=== PATIENT | female | born 1980 | race African-American/Black ===

== ENCOUNTER 2017-04-19 08:50 | Inpatient (IN) | payer OTHER ==
[2017-04-17 12:42] VITALS: BMI 38.2
[~2017-04-19 08:50] MED LIST: BUPIVACAINE HCL/PF 0.5% (5MG/ML) 10 ML VIAL IJ ONE
[2017-04-19] MEDS ORDERED: MIDAZOLAM HCL 2 MG/2 ML SINGLE DOSE VIAL ONE (15:01)
[2017-04-19] MEDS ORDERED: PROPOFOL 20 ML ONE (15:01)
[2017-04-19] MEDS ORDERED: ROCURONIUM BROMIDE 50 MG/5 ML VIAL ONE ×2 (15:01→15:59)
[2017-04-19] MEDS ORDERED: ceFAZolin SODIUM 1 GM VIAL ONE (15:24)
[2017-04-19] MEDS ORDERED: ceFAZolin SODIUM 1 GM VIAL IVPB ONE (15:29)
[2017-04-19] MEDS ORDERED: ONDANSETRON 4 MG/2 ML VIAL ONE ×2 (15:30→17:32)
[2017-04-19] MEDS ORDERED: DEXAMETHASONE SOD PHOSPHATE 4 MG/1 ML VIAL ONE ×2 (15:30→17:32)
[2017-04-19] MEDS ORDERED: GLYCOPYRROLATE 0.2 MG/1 ML VIAL ONE (17:22)
[2017-04-19] MEDS ORDERED: BUPIVACAINE HCL/PF 0.5% (5MG/ML) 10 ML VIAL IJ ONE (17:30)
--- NOTE | 2017-04-19 17:51 | OP ---
Operative Note - Note: Operative Date: 04/19/17 Pre-Operative Diagnosis: 1. Evaluate anatomy prior to sleeve gastrectomy. 2. Rule out leak/obstruction post sleeve gastrectomy Operation: Upper endoscopy/EGD Post-Operative Diagnosis: Other (No obstruction/leak) Surgeon: Juan Holloway Anesthesia: General Specimens Removed: None Estimated Blood Loss (mls): 0 Operative Report Dictated: Yes
--- NOTE | 2017-04-19 17:53 | OP ---
Operative Note - Note: Operative Date: 04/19/17 Pre-Operative Diagnosis: Morbid Obesity. Sleep Apnea Operation: Laparoscopic Vertical Sleeve Gastrectomy. Laparoscopic Lysis of Adhesions. Diagnostic Laparoscopy Findings: Patient with stretched previous sleeve gastrectomy. Massive scar tissue between stomach and liver noted. Large amount of scar tissue noted on greater curve of stomach and dissected off. Implants: none Surgeon: Bao Lnaza Content Curator: Juan Holloway Anesthesia: General Specimens Removed: Greater curve of stomach Estimated Blood Loss (mls): 200 Operative Report Dictated: Yes
[2017-04-19] MEDS ORDERED: PROMETHAZINE HCL 25 MG/1 ML VIAL ONE (18:00)
[2017-04-19] MEDS: METOCLOPRAMIDE HCL INJECTION 10 MG/2 ML VIAL IVPUSH SCH (18:00)
[2017-04-19] MEDS: HYDROmorphone HCL CARPU-JECT 2 MG/1 ML DISP.SYRIN IVPUSH PRN ×4 (18:15→18:45)
[2017-04-19] MEDS ORDERED: METOCLOPRAMIDE HCL INJECTION 10 MG/2 ML VIAL ONE (18:21)
[2017-04-19] MEDS ORDERED: HYDROmorphone HCL CARPU-JECT 2 MG/1 ML DISP.SYRIN ONE (18:22)
[2017-04-19] MEDS: ELECTROLYTE-148 SOLN 1,000 ML IV SCH (18:50)
[2017-04-19] MEDS ORDERED: PROMETHAZINE HCL 25 MG/1 ML VIAL IVPB PRN (18:56)
[2017-04-19 19:59] LABS: HEMATOCRIT 39.3 % (32.4-45.2); HEMOGLOBIN 12.9 GM/dL (10.7-15.3); MCH 29.9 pg (25.7-33.7); MCHC 32.7 g/dl (32.0-36.0); MEAN CELL VOLUME 91.3 fl (80-96); MEAN PLT VOLUME 9.7 fl (7.5-11.1); PLATELET COUNT 126 K/MM3 (134-434); RDW 13.7 % (11.6-15.6); WHITE BLOOD COUNT 20.2 K/mm3 (4.0-10.0)
[2017-04-19 20:04] LABS: ALBUMIN 3.4 g/dl (3.4-5.0); ALK PHOS 66 U/L (45-117); ANION GAP 11 (8-16); BILIRUBIN,TOTAL 0.4 mg/dL (0.2-1.0); BLOOD UREA NITROGEN 11 mg/dL (7-18); CHLORIDE 107 mmol/L (98-107); CO2 20 mmol/L (21-32); CREATININE 0.7 mg/dL (0.55-1.02); GLUCOSE,RANDOM 131 mg/dL (74-106); SGPT/ALT 47 U/L (12-78); SODIUM 138 mmol/L (136-145); TOT PROT 7.1 g/dl (6.4-8.2)
[2017-04-19 20:26] LABS: POTASSIUM 3.7 mmol/L (3.5-5.1); SGOT/AST 68 U/L (15-37)
[2017-04-19] MEDS: SODIUM CHLORIDE 1,000 ML IV SCH ×2 (20:38→22:46)
[2017-04-19] MEDS: FAMOTIDINE 20 MG/50 ML IVPB 20 MG/50 ML MG IVPB SCH (22:45)
--- NOTE | 2017-04-19 23:14 | HP ---
DATE OF ADMISSION: 04/19/2017 CHIEF COMPLAINT: Morbid obesity. HISTORY OF PRESENT ILLNESS: The patient is a 36-year-old woman with a history of morbid obesity for many years despite multiple attempts at dietary weight loss. She received nutritional, psychological, cardiac evaluation and clearance prior to undergoing elective sleeve gastrectomy surgery. PAST MEDICAL HISTORY: Significant for sleep apnea. PAST SURGICAL HISTORY: Patient has sleeve gastrectomy 4-1/2 years ago in [place]. ALLERGIES/MEDICATION: Patient has no known allergies and takes no medications. REVIEW OF SYSTEMS: Cardiovascular: Within normal limits. Musculoskeletal: Within normal limits. Gastrointestinal: Within normal limits. Neuromuscular: Patient has bilateral knee pain. PHYSICAL EXAMINATION: General: Patient is awake and alert, morbidly obese in no acute distress. HEENT: No masses palpated. Lungs: Clear bilaterally. Heart: Regular sinus rhythm. Abdomen: Well healed trocar incision. Soft and nontender on palpation. Positive for obesity. Extremities: Within normal limits. IMPRESSION: Morbid obesity. PLAN: OR for sleeve gastrectomy surgery. Wendy [id number]
[2017-04-20] MEDS: HYDROmorphone HCL CARPU-JECT 2 MG/1 ML DISP.SYRIN IVPB PRN ×4 (00:16→21:34)
[2017-04-20] MEDS: ONDANSETRON 4 MG/2 ML VIAL IVPUSH PRN ×2 (00:16→08:22)
[2017-04-20] MEDS: METOCLOPRAMIDE HCL INJECTION 10 MG/2 ML VIAL IVPUSH SCH ×4 (02:34→21:34)
--- NOTE | 2017-04-20 07:28 | OP ---
DATE OF OPERATION: 04/19/2017 SURGEON: Corry Holloway MD PROCEDURE: Upper endoscopy/esophagogastroduodenoscopy. PREOPERATIVE DIAGNOSIS: Evaluate for a leak/obstruction and to evaluate the anatomy prior to sleeve gastrectomy and to reevaluate for obstruction/leak after sleeve gastrectomy. POSTOPERATIVE DIAGNOSIS: Dilated gastric sleeve pouch and no obstruction or leak after sleeve gastrectomy. SPECIMEN: None. ESTIMATED BLOOD LOSS: None. ANESTHESIA: GET. REASON FOR PROCEDURE: This is a 36-year-old female who is undergoing a vertical sleeve gastrectomy by Dr. Bao Lanza. In order to evaluate the anatomy preoperatively, endoscopy was requested. DESCRIPTION OF PROCEDURE: Endoscope was inserted into the patient's mouth. The entirety of the esophagus, GE junction, stomach was inspected. Stomach was noticed to be non-tortuous. No signs of obstruction were noted. The stomach was noted to be slightly dilated, but no gross abnormalities noted. The vertical sleeve gastrectomy was then proceeded by Dr. Bao Lanza. After it was performed, a repeat endoscopy was requested to evaluate for leak and obstruction. The endoscope was reinserted, and the entirety of the esophagus, GE junction, gastric pouch, and staple line was inspected. Hemostasis of the staple line was noted. No leak or obstruction was noted. The stomach was then suctioned, and the remainder of the case continued. CORRY HOLLOWAY M.D. SHERYL/[id number]
[2017-04-20 07:31] LABS: HEMATOCRIT 40.5 % (32.4-45.2); HEMOGLOBIN 13.3 GM/dL (10.7-15.3); MCH 29.5 pg (25.7-33.7); MCHC 32.8 g/dl (32.0-36.0); MEAN CELL VOLUME 89.9 fl (80-96); MEAN PLT VOLUME 7.6 fl (7.5-11.1); PLATELET COUNT 352 K/MM3 (134-434); RBC 4.51 M/mm3 (3.60-5.2); RDW 13.1 % (11.6-15.6); WHITE BLOOD COUNT 12.9 K/mm3 (4.0-10.0)
--- NOTE | 2017-04-20 07:43 | OP ---
DATE OF OPERATION: 04/19/2017 PREOPERATIVE DIAGNOSIS: 1. Morbid obesity. 2. Sleep apnea. POSTOPERATIVE DIAGNOSIS: 1. Morbid obesity. 2. Sleep apnea. 3. Abdominal adhesions. PROCEDURE PERFORMED: 1. Laparoscopic vertical sleeve gastrectomy. 2. Laparoscopic lysis of adhesions. 3. Diagnostic laparoscopy. OPERATING SURGEON: Bao Lanza MD BARRELHEAD INSPECTOR: Juan Holloway MD ANESTHESIA: General. OPERATIVE PROCEDURE: The patient was brought into the operating room, placed on the OR table in the supine position. All precautions were taken initially including padding for the back and the feet, and Venodyne boots were placed on both lower extremities. At that point, Dr. Holloway performed an upper endoscopy because the patient had previous sleeve gastrectomy surgery. The upper endoscopy results can be found in his procedure note. However, eventually it showed that the fundus of the stomach was largely dilated, and that the sleeve portion was also much bigger than what would be expected after surgery. There were no signs of any obstruction or any pathology in the stomach, and he went all the way down to the pylorus where he saw bile from the duodenum. At this point, the abdomen was prepped and draped in the usual manner. A Veress needle was placed in the left upper quadrant, and a pneumoperitoneum was established. First a No. 5 bladeless trocar was placed in the left upper quadrant under direct vision with the laparoscope. Once this was done, under direct vision, a No. 5 bladeless trocar was placed in the right upper quadrant. There were adhesions from the patients previous surgery between the omentum and the umbilicus, and these were lysed with the LigaSure device. A No. 5 bladeless trocar was now placed in the left costal margin. Once the adhesions were lysed in the midline, a No. 15 bladeless trocar was placed just above the umbilicus in the midline. At this point, the No. 5 bladeless trocar in the left upper quadrant was switched out to a No. 12, and a No. 12 camera was used. A Micheal Liver Retractor was placed in the epigastrium to retract the left lobe of the liver. The patient was then placed in 20-degree reverse Trendelenburg position by Anesthesia. The stomach was noted to be enlarged despite the patient having had previous surgery. There were adhesions between the anterior wall of the stomach up high just below the EG junction and between the liver. These were very dense and difficult, but using great care, they were dissected. The stomach was dissected off of the undersurface of the liver. This was done with the LigaSure device plus also with laparoscopic scissors and also with blunt dissection. Once this was done, attention was now directed to preparing for a sleeve gastrectomy. There were a lot of adhesions that regrew to the greater curve of the stomach. These were lysed owning 6 cm proximal pylorus on the greater curve of the stomach with the LigaSure device. This continued in a superior direction and continued until the final adhesion in the left upper quadrant between the superior pole of the spleen and the proximal fundus was divided. As was noted, on the upper endoscopy preoperatively, the sleeve was much larger than originally had been operative upon. Anesthesia passed a No. 36 bougie, and it passed all the way without any difficulty to the pylorus. With the bougie now held along the lesser curvature, the patient clerical assistant surgeon retracted the greater curvature of the stomach towards the patients left side, and a series of anderson was performed with the first 4 loads being black loads, 6 cm in length, along the bougie. Black loads were used because of the thickness of the stomach that remained after the previous surgery. This then continued until the fundus was reached. Once the fundus was reached, dissection continued on the posterior wall of the fundus until it was free in the left upper quadrant. This now continued with the purple load anderson, also 6 cm in length, and once the final staple was fired in the left upper quadrant, the entire fundus was removed from the lesser curvature of the stomach. The fundus and the other portion of the sleeve now were sent off the field in 2 specimens to Pathology. At this juncture, Dr. Holloway again performed another endoscopy, this time post procedure, and saw the staple line on the inside. There were no signs of any leaks from the staple line and no signs of bleeding. There were also no signs of obstruction or strictures that were noted. At this point, it should be noted that there was bleeding from the liver, which had to be dissected off the stomach wall. This was controlled with multiple pieces of Surgicel, and the liver had no bleeding at the termination of procedure. At this point, under direct vision, all trocars were removed and pneumoperitoneum was released. All trocar sites then received 0.25% Marcaine, were closed with 4-0 Biosyn in a subcuticular fashion on the skin. The No. 15 trocar in the midline was first closed with 3-0 Vicryl in the subcutaneous tissue, followed by 4-0 Biosyn subcuticular. Dressings were applied. Patient awoke from anesthesia and transferred out of the operating room to the recovery room in stable condition. ANESTHESIA: General. SURGEON: Bao Lanza MD BARRELHEAD INSPECTOR: Juan Holloway MD EXPECTED BLOOD LOSS: 200 mL. Patient transferred to the recovery room in stable condition. Wendy PAUL/[id number]
[2017-04-20 08:04] LABS: ALBUMIN 3.4 g/dl (3.4-5.0); ANION GAP 7 (8-16); BILIRUBIN,TOTAL 0.5 mg/dL (0.2-1.0); BLOOD UREA NITROGEN 8 mg/dL (7-18); CALCIUM 8.1 mg/dL (8.5-10.1); CHLORIDE 107 mmol/L (98-107); CO2 24 mmol/L (21-32); CREATININE 0.8 mg/dL (0.55-1.02); GLUCOSE,RANDOM 100 mg/dL (74-106); POTASSIUM 4.2 mmol/L (3.5-5.1); SGOT/AST 54 U/L (15-37); SGPT/ALT 60 U/L (12-78); SODIUM 138 mmol/L (136-145); TOT PROT 7.2 g/dl (6.4-8.2)
[2017-04-20 08:05] LABS: ALK PHOS 67 U/L (45-117)
--- NOTE | 2017-04-20 09:16 | PN ---
Progress Note (short form) - Note Progress Note: Anesthesia postop note 36 y/o F s/p GA for Laparoscopic gastric sleeve POD#1, vss, aaox3, complaining of pain, mostly right shoulder pain, just returned to bed after ambulating this morning. Patient reassured and explained that the right shoulder pain could be referred pain after laparoscopy. No anesthesia complications.
[2017-04-20] MEDS: FAMOTIDINE 20 MG/50 ML IVPB 20 MG/50 ML MG IVPB SCH ×2 (10:39→21:34)
[2017-04-20] MEDS: SODIUM CHLORIDE 1,000 ML IV SCH (14:46)
[2017-04-20] MEDS ORDERED: oxyCODONE HCL 5 MG TABLET PO PRN (17:02)
[2017-04-20] MEDS ORDERED: SODIUM CHLORIDE 1,000 ML IV SCH (17:15)
--- NOTE | 2017-04-20 17:27 | PN ---
Progress Note (short form) - Note Progress Note: POD#1 Afebrile; VSS Pt ambulating C/O Abd cramping No flatus, some belching No N/V UGI- no leak, no obstruction Contrast flows into SB + ileus P/E- all trocar sites clean, dry Ext- no leg swelling noted, non-tender on palpation WBC-12.9 H/H-13.3/40.5 P- PO clear liquids- 2 oz po TID Encourage OOB ambulate
[2017-04-21] MEDS: METOCLOPRAMIDE HCL INJECTION 10 MG/2 ML VIAL IVPUSH SCH ×4 (02:01→22:31)
[2017-04-21] MEDS: HYDROmorphone HCL CARPU-JECT 2 MG/1 ML DISP.SYRIN IVPB PRN ×2 (08:26→16:08)
[2017-04-21] MEDS: FAMOTIDINE 20 MG/50 ML IVPB 20 MG/50 ML MG IVPB SCH ×2 (09:22→22:31)
--- NOTE | 2017-04-21 12:34 | PN ---
Progress Note (short form) - Note Progress Note: POD#2 Afebrile; VSS Pulse- 90-93 Pt doing well Ambulating Decreased gas pains; + flatus Tolerating po clear liquids- 3 oz PO TID Still receiving IV fluids P/E- tongue- dry-appearing P- Pt doing well, but PO is limited Will need IV fluids for 1 day further Hold D/C to home, and attempt D/C in AM
[2017-04-21] MEDS: ELECTROLYTE-148 SOLN 1,000 ML IV SCH ×2 (15:16→15:50)
[2017-04-21] MEDS ORDERED: ELECTROLYTE-148 SOLN 1,000 ML IV SCH (22:30)
[2017-04-22] MEDS: HYDROmorphone HCL CARPU-JECT 2 MG/1 ML DISP.SYRIN IVPB PRN (02:42)
[2017-04-22] MEDS: METOCLOPRAMIDE HCL INJECTION 10 MG/2 ML VIAL IVPUSH SCH ×2 (02:44→08:50)
[2017-04-22 06:10] VITALS: PULSE 86
[2017-04-22 08:03] LABS: HEMATOCRIT 35.3 % (32.4-45.2); HEMOGLOBIN 11.7 GM/dL (10.7-15.3); MCH 29.7 pg (25.7-33.7); MCHC 33.2 g/dl (32.0-36.0); MEAN CELL VOLUME 89.5 fl (80-96); MEAN PLT VOLUME 7.5 fl (7.5-11.1); PLATELET COUNT 282 K/MM3 (134-434); RBC 3.94 M/mm3 (3.60-5.2); RDW 12.9 % (11.6-15.6); WHITE BLOOD COUNT 12.6 K/mm3 (4.0-10.0)
[2017-04-22 08:27] LABS: ALBUMIN 2.9 g/dl (3.4-5.0); CALCIUM 7.7 mg/dL (8.5-10.1); CHLORIDE 106 mmol/L (98-107); POTASSIUM 3.5 mmol/L (3.5-5.1); SODIUM 140 mmol/L (136-145)
[2017-04-22 08:31] LABS: ALK PHOS 50 U/L (45-117); ANION GAP 8 (8-16); BILIRUBIN,TOTAL 0.7 mg/dL (0.2-1.0); BLOOD UREA NITROGEN 7 mg/dL (7-18); CO2 26 mmol/L (21-32); CREATININE 0.5 mg/dL (0.55-1.02); GLUCOSE,RANDOM 73 mg/dL (74-106); SGOT/AST 18 U/L (15-37); SGPT/ALT 41 U/L (12-78); TOT PROT 6.2 g/dl (6.4-8.2)
[2017-04-22 08:50] VITALS: BP 140/90; TEMP 98
--- NOTE | 2017-04-23 12:25 | PATH ---
Surgical Pathology Report Patient Name: JACLYN RAMSEY [facility]. Rec. #: [id number] /Age/Gender: 1980 (Age: 36) / F Account: [id number] Location: 4 SO PEDS/ADOL Taken: 04/19/2017 Received: 04/20/2017 Reported: 04/23/2017 Physicians: Bao Lanza M.D. Specimen(s) Received A: GREATER CURVATURE STOMACH B: OMENTUM Clinical History Morbid obesity Final Diagnosis A. STOMACH, GREATER CURVATURE, SLEEVE GASTRECTOMY: PORTION OF GASTRIC FUNDUS WITH VASCULAR CONGESTION AND FOCAL MILD CHRONIC INFLAMMATION. IMMUNOSTAIN FOR H. PYLORI IS NEGATIVE. B. OMENTUM, PARTIAL EXCISION: BENIGN ADIPOSE TISSUE CONSISTENT WITH PORTION OF OMENTUM, WITH VASCULAR ECTASIA AND FOCAL EXTRAVASATION OF BLOOD. Electronically Signed Grady Conteh M.D. Gross Description A. Received in formalin labeled "greater curvature of stomach," is a 58 g aggregate of 2 portions of stomach measuring 9.0 x 2.5 x 2.0 cm and 8.0 x 3.0 x 2.8 cm. The serosa is [place] with minimal attached fat. Both specimens display a staple line. The mucosa is [place] with focally flattened folds. No mucosal masses are identified. Birth Certificate Clerk sections are submitted in one cassette. B. Received in formalin labeled "omentum," is a 6.0 x 3.0 x 0.9 cm portion of yellow, lobulated adipose tissue, consistent with a portion of omentum. The specimen displays focal anderson. Sectioning reveals unremarkable yellow fat. Birth Certificate Clerk sections are submitted in one cassette. /04/20/2017 [facility]04/20/2017
== END 2017-04-22 09:21 | disposition home or self-care (01) | DRG 621 ==
LOC: JSAMEDAYSX 11:33 → EDSTATUS 13:30 → J4S 21:22
PROVIDERS: ADMIT Surgery; ATTEND Surgery
PROC: 0DB64Z3 Excision of Stomach, Percutaneous Endoscopic Approach, Vertical (ICD-10-PCS; principal; 2017-04-19 14:00)
PROC: 0DNW4ZZ Release Peritoneum, Percutaneous Endoscopic Approach (ICD-10-PCS; 2017-04-19 14:00)
PROC: 0DJ08ZZ Inspection of Upper Intestinal Tract, Via Natural or Artificial Opening Endoscopic (ICD-10-PCS; 2017-04-19 14:00)
DX: E66.01 Morbid (severe) obesity due to excess calories (principal); Z68.38 Body mass index [BMI] 38.0-38.9, adult; G47.30 Sleep apnea, unspecified; K66.0 Peritoneal adhesions (postprocedural) (postinfection)
CPT/HCPCS: 36415; 74241-TC-FY; 80053; 84702; 85027; 86850; 86900; 86901; 88305-TC; 94010; 94760